=== PATIENT | male | born 1965 | race Caucasian/White ===

== ENCOUNTER 2016-10-28 09:04 | Emergency (ER) | payer OTHER ==
[2016-10-28 09:15] VITALS: BMI 27.1
--- NOTE | 2016-10-28 09:28 | PDOC ---
History of Present Illness - General History Source: Patient Exam Limitations: No Limitations - History of Present Illness Initial Comments: 10/28/16 09:40 The patient is a 50 year old male, with no significant past medical history who presents to the emergency department possible wound infection to groin area for about 2 days. The patient reports having hard bumps in his perineum. He reports being seen for this problem before with no alleviation of his symptoms since. The patient ranks his pain a 3/10 in pain intensity. He denies any recent fever , chills, headache and dizziness. Allergies: NKA Social History: Nonsmoker. Denies EtOH use and drug use. <Dani Mcmahon - Last Filed: 10/28/16 12:26> <Brandi Rachel - Last Filed: 10/28/16 15:04> - General Chief Complaint: Wound Stated Complaint: INFECTION Time Seen by Provider: 10/28/16 09:24 Past History <Dani Mcmahon - Last Filed: 10/28/16 12:26> - Past Medical History Suicide Attempt (Hx): No Other medical history: NONE - Immunization History Immunization Up to Date: Yes - Psycho/Social/Smoking Cessation Hx Anxiety: No Suicidal Ideation: No Smoking Status: No Smoking History: Never smoked Number of Cigarettes Smoked Daily: 0 Hx Alcohol Use: No Drug/Substance Use Hx: No Substance Use Type: None Hx Substance Use Treatment: No <Brandi Rachel - Last Filed: 10/28/16 15:04> - Past Medical History Allergies/Adverse Reactions: Allergies Allergy/AdvReac Type Severity Reaction Status Date / Time No Known Allergies Allergy Verified 10/28/16 09:17 Home Medications: Ambulatory Orders Ciprofloxacin [Cipro (Restricted To Id)] 500 mg PO Q12H #14 tablet 10/28/16 Review of Systems - Review of Systems Able to Perform ROS?: Yes Comments:: 10/28/16 09:40 GENERAL/CONSTITUTIONAL: No fever or chills. No weakness. HEAD, EYES, EARS, NOSE AND THROAT: No change in vision. No ear pain or discharge. No sore throat. CARDIOVASCULAR: No chest pain or shortness of breath. RESPIRATORY: No cough, wheezing, or hemoptysis. GASTROINTESTINAL: No nausea, vomiting, diarrhea or constipation. GENITOURINARY: No dysuria, frequency, or change in urination. MUSCULOSKELETAL: No joint or muscle swelling or pain. No neck or back pain. SKIN: Yes: Redness and pain around groin area. No rash NEUROLOGIC: No headache, vertigo, loss of consciousness, or change in strength/ sensation. ENDOCRINE: No increased thirst. No abnormal weight change. HEMATOLOGIC/LYMPHATIC: No anemia, easy bleeding, or history of blood clots. ALLERGIC/IMMUNOLOGIC: No hives or skin allergy. <Dani Mcmahon - Last Filed: 10/28/16 12:26> *Physical Exam - Vital Signs Last Vital Signs Temp Pulse Resp BP Pulse Ox 97.8 F 79 20 142/85 98 10/28/16 09:12 10/28/16 09:12 10/28/16 09:12 10/28/16 09:12 10/28/16 09:12 - Physical Exam Comments: 10/28/16 09:40 GENERAL: Awake, alert, and fully oriented, in no acute distress HEAD: No signs of trauma EYES: PERRLA, EOMI, sclera anicteric, conjunctiva clear ENT: Auricles normal inspection, hearing grossly normal, nares patent, oropharynx clear without exudates. Moist mucosa NECK: Normal ROM, supple, no lymphadenopathy, JVD, or masses LUNGS: Breath sounds equal, clear to auscultation bilaterally. No wheezes, and no crackles HEART: Regular rate and rhythm, normal S1 and S2, no murmurs, rubs or gallops : Multiple indurated area to the left perineum. No fluctuance and no overlying skin changes. 2 cm fluctuant are to the left perianal region. ABDOMEN: Soft, nontender, normoactive bowel sounds. No guarding, no rebound. No masses EXTREMITIES: Normal range of motion, no edema. No clubbing or cyanosis. No cords, erythema, or tenderness NEUROLOGICAL: Cranial nerves II through XII grossly intact. Normal speech, normal gait SKIN: Warm, Dry, normal turgor, no rashes or lesions noted. <Dani Mcmahon - Last Filed: 10/28/16 12:26> - Vital Signs Last Vital Signs Temp Pulse Resp BP Pulse Ox 97.8 F 79 20 142/85 98 10/28/16 09:12 10/28/16 09:12 10/28/16 09:12 10/28/16 09:12 10/28/16 09:12 <Brandi Rachel - Last Filed: 10/28/16 15:04> ED Treatment Course - LABORATORY CBC & Chemistry Diagram: 10/28/16 10:11 10/28/16 10:11 - RADIOLOGY Radiograph Interpretation: 10/28/16 11:57 SCROTUM AND CONTENTS US and SOFT TISSUE ABDOMEN US impressions reported by . A 2.3 x 2.1 x 1 cm complex left perianal fluid collection is noted. Very small bilateral hydroceles are seen. The intrascrotal structures otherwise appear unremarkable. <Dani Mcmahon - Last Filed: 10/28/16 12:26> - LABORATORY CBC & Chemistry Diagram: 10/28/16 10:11 10/28/16 10:11 <Brandi Rachel - Last Filed: 10/28/16 15:04> Medical Decision Making - Medical Decision Making Pt evaluated by Dr. Wilson. Recommended sitz baths, PO abx, outpatient evaluation, as this may be a chronic tract. Stable for DC home. <Brandi Rachel - Last Filed: 10/28/16 15:04> *DC/Admit/Observation/Transfer - Attestations Scribe Attestion: 10/28/16 09:29 Documentation prepared by Dani Mcmahon, acting as biomedical instrument technician for Brandi Rachel MD. <Dani Mcmahon - Last Filed: 10/28/16 12:26> - Discharge Dispostion Admit: No <Brandi Rachel - Last Filed: 10/28/16 15:04> Diagnosis at time of Disposition: Perineal pain - Discharge Dispostion Disposition: HOME Condition at time of disposition: Stable - Prescriptions Prescriptions: Ciprofloxacin [Cipro (Restricted To Id)] 500 mg PO Q12H #14 tablet - Referrals Referrals: Deangelo Wilson MD [Staff Physician] - Itaol Mena MD [Primary Care Provider] - - Patient Instructions Printed Discharge Instructions: DI for Skin Abscess Additional Instructions: Ve a la oficina de Dr. Wilson en mello semana. Llame por mello doris. [place] cipro segn lo prescrito por 1 semana. Sitz bath tambien- pregunta en la farmacia por informacion.
[2016-10-28 10:15] LABS: BASOPHIL 0.9 % (0-2.0); EOSINOPHIL 7.9 % (0-4.5); MCH 29.8 pg (25.7-33.7); MCHC 32.9 g/dl (32.0-35.9); MEAN CELL VOLUME 90.6 fl (80-96); MEAN PLT VOLUME 9.3 fl (7.5-11.1); NEUTROPHILS 60.5 % (42.8-82.8); PLATELET COUNT 177 K/MM3 (134-434); RDW 13.6 % (11.9-15.9); WHITE BLOOD COUNT 11.5 K/mm3 (4.0-10.0)
[2016-10-28 10:17] LABS: URINE APPEARANCE CLEAR; URINE BILIRUBIN NEGATIVE (NEGATIVE); URINE BLOOD NEGATIVE (NEGATIVE); URINE COLOR LTYELLOW; URINE GLUCOSE (UA) NEGATIVE (NEGATIVE); URINE KETONE NEGATIVE (NEGATIVE); URINE LEUK ESTERASE NEGATIVE (NEGATIVE); URINE NITRITE NEGATIVE (NEGATIVE); URINE PROTEIN NEGATIVE (NEGATIVE); URINE UROBILINOGEN NEGATIVE E.U./dl (0.2-1.0)
[2016-10-28 10:41] LABS: INR 1.05 (0.82-1.09); PROTHROMBIN TIME (PATIENT) 11.6 SEC (9.98-11.88)
[2016-10-28 10:54] LABS: ALBUMIN 3.5 g/dl (3.4-5.0); ALK PHOS 71 U/L (45-117); ANION GAP 7 (8-16); BILIRUBIN,TOTAL 0.6 mg/dL (0.2-1.0); CALCIUM 8.7 mg/dL (8.5-10.1); CO2 29 mmol/L (21-32); CREATININE 0.9 mg/dL (0.7-1.3); GLUCOSE,RANDOM 77 mg/dL (74-106); SGPT/ALT 36 U/L (12-78); TOT PROT 6.8 g/dl (6.4-8.2)
[2016-10-28 10:57] LABS: SGOT/AST 21 U/L (15-37)
--- NOTE | 2016-10-28 12:47 | CONSULT ---
Consultation: REQUESTING PROVIDER: TANYA WEISS CONSULT REQUEST: I have been asked to surgically evaluate this patient for possible perianal/perineal pathology HISTORY OF PRESENT ILLNESS: ? Had I and D of a perianal abscess August 2016; now w/ # days of pain and persistent/unresolve "lump". He came to the ER for evaluation. REVIEW OF SYSTEMS: CONSTITUTIONAL: Absent: fever, chills, diaphoresis, generalized weakness, malaise, loss of appetite, weight change Absent: abdominal pain, abdominal distension, nausea, vomiting, diarrhea, constipation, melena, hematochezia GENITOURINARY: Absent: dysuria, frequency, urgency, hesitancy, hematuria, flank pain, genital pain MUSCULOSKELETAL: Absent: myalgia, arthralgia, joint swelling, back pain, neck pain SKIN: Absent: rash, itching, pallor HEMATOLOGIC/IMMUNOLOGIC: Absent: easy bleeding, easy bruising, lymphadenopathy, frequent infections NEUROLOGIC: Absent: headache, focal weakness or paresthesias, dizziness, unsteady gait, seizure, mental status changes, bladder or bowel incontinence PSYCHIATRIC: Absent: anxiety, depression, suicidal or homicidal ideation, hallucinations. PHYSICAL EXAMINATION Vital Signs Temperature 97.8 F 10/28/16 09:12 Pulse Rate 79 10/28/16 09:12 Respiratory Rate 20 10/28/16 09:12 Blood Pressure 142/85 10/28/16 09:12 O2 Sat by Pulse Oximetry (%) 98 10/28/16 09:12 GENERAL: Awake, alert, and fully oriented, in no acute distress. ABDOMEN: Soft, nontender, not distended, normoactive bowel sounds, no guarding, no rebound, no masses. No hepatomegaly or splenomegaly. MUSCULOSKELETAL: Normal range of motion at all joints. No bony deformities or tenderness. No CVA tenderness. UPPER EXTREMITIES: 2+ pulses, warm, well-perfused. No cyanosis. Cap refill <2 seconds. No peripheral edema. LOWER EXTREMITIES: 2+ pulses, warm, well-perfused. No calf tenderness. No peripheral edema. NEUROLOGICAL: Normal speech, gait not observed. PSYCH: Cooperative. Good eye contact. Appropriate mood and affect. SKIN: Warm, dry, normal turgor, no rashes or lesions noted. Right abhay-anal chronic induration w/o tenderness to palpation; no fluctuance; no fissure; no drainage; ?? fistula in ano ?? LABS: US reviewed Laboratory Results - last 24 hr 10/28/16 10/28/16 10/28/16 10:06 10:11 10:11 WBC 11.5 H RBC 4.90 Hgb 14.6 Hct 44.4 MCV 90.6 MCHC 32.9 RDW 13.6 Plt Count 177 MPV 9.3 Neutrophils % 60.5 Lymphocytes % 22.3 D Monocytes % 8.4 Eosinophils % 7.9 H Basophils % 0.9 INR 1.05 Sodium Potassium Chloride Carbon Dioxide Anion Gap BUN Creatinine Creat Clearance w eGFR Random Glucose Calcium Total Bilirubin AST ALT Alkaline Phosphatase Total Protein Albumin Urine Color Ltyellow Urine Appearance Clear Urine pH 6.0 Ur Specific Jbphh 1.012 Urine Protein Negative Urine Glucose (UA) Negative Urine Ketones Negative Urine Blood Negative Urine Nitrite Negative Urine Bilirubin Negative Urine Urobilinogen Negative Ur Leukocyte Esterase Negative 10/28/16 10:11 WBC RBC Hgb Hct MCV MCHC RDW Plt Count MPV Neutrophils % Lymphocytes % Monocytes % Eosinophils % Basophils % INR Sodium 142 Potassium 4.3 Chloride 106 Carbon Dioxide 29 Anion Gap 7 L BUN 10 D Creatinine 0.9 D Creat Clearance w eGFR > 60 Random Glucose 77 D Calcium 8.7 Total Bilirubin 0.6 D AST 21 D ALT 36 D Alkaline Phosphatase 71 Total Protein 6.8 Albumin 3.5 Urine Color Urine Appearance Urine pH Ur Specific Jbphh Urine Protein Urine Glucose (UA) Urine Ketones Urine Blood Urine Nitrite Urine Bilirubin Urine Urobilinogen Ur Leukocyte Esterase IMP/PLAN: ? fistula in ano; patient examined w/ Dr. Ary Rachel; advise BID Sitz baths and Cipro and OPD f/u; d/w patient in [place]. Deangelo Wilson MD FACS Problem List - Problems (1) Perineal pain Code(s): R10.2 - PELVIC AND PERINEAL PAIN Visit type - Case Type Case Type: ED Admission - New patient This patient is new to me today: Yes Date on this admission: 10/28/16 - Critical Care Critical Care patient: No
[2016-10-28 13:22] VITALS: BP 134/92; PULSE 86; TEMP 98.2
== END 2016-10-28 13:36 | disposition home or self-care (01) ==
LOC: JER 09:04
DX: L02.215 Cutaneous abscess of perineum (principal); R10.2 Pelvic and perineal pain
CPT/HCPCS: 36415; 76705; 76870-TC; 80053; 81003; 85025; 85610; 87491; 87591; 99283-25

== ENCOUNTER 2018-11-30 18:13 | Emergency (ER) | payer OTHER ==
[2018-11-30 18:18] VITALS: TEMP 98.1; BMI 31.1
[2018-11-30] MEDS ORDERED: KETOROLAC TROMETHAMINE 30 MG/1 ML VIAL IM ONE (18:58)
[2018-11-30] MEDS ORDERED: KETOROLAC TROMETHAMINE 30 MG/1 ML VIAL ONE (19:05)
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
[2018-11-30 19:49] VITALS: BP 141/90; PULSE 71
== END 2018-11-30 19:45 | disposition home or self-care (01) ==
LOC: JERFT 18:13
PROC: 3E0233Z Introduction of Anti-inflammatory into Muscle, Percutaneous Approach (ICD-10-PCS; principal; 2018-11-30)
DX: M54.9 Dorsalgia, unspecified (principal); I10 Essential (primary) hypertension; V44.5XXA Car driver injured in collision with heavy transport vehicle or bus in traffic accident, initial encounter; Y92.414 Local residential or business street as the place of occurrence of the external cause; Y93.89 Activity, other specified; Y99.8 Other external cause status
CPT/HCPCS: 96372; 99281-25